=== PATIENT | male | born 1935 | race Caucasian/White ===

== ENCOUNTER → 2020-03-20 09:26 | Outpatient (BNVA) | payer MEDICARE, OTHER, SELFPAY | PROVIDERS: Family Provider Electrodiagnostic Medicine; PCP Electrodiagnostic Medicine; Visit Provider Specialist | DX: G71.11 Myotonic muscular dystrophy (principal); M96.1 Postlaminectomy syndrome, not elsewhere classified; M21.372 Foot drop, left foot; G62.9 Polyneuropathy, unspecified; M62.89 Other specified disorders of muscle | CPT/HCPCS: 82550; 82607; 82746; 83921; 84155; 84165; 85651; 99205 ==

== ENCOUNTER 2020-03-20 11:29 | Outpatient (CLI) | payer MEDICARE, OTHER, SELFPAY ==
[2020-03-20 12:50] LABS: Vitamin B12 380 pg/mL (232-1245)
[2020-03-20 13:43] LABS: Creatine Phosphokinase 426 U/L (39-308); Folate Level > 20.0 ng/mL (4.5-32.2)
[2020-03-20 13:45] LABS: Erythrocyte Sedimentation Rate 22 mm/hr (0-10)
[2020-03-21 08:12] LABS: PROTEIN, TOTAL 6.4 g/dL (6.1-8.1)
[2020-03-21 11:57] LABS: ALBUMIN 3.9 g/dL (3.8-4.8); ALPHA 1 GLOBULIN 0.3 g/dL (0.2-0.3); ALPHA 2 GLOBULIN 0.7 g/dL (0.5-0.9); BETA 1 GLOBULIN 0.4 g/dL (0.4-0.6); BETA 2 GLOBULIN 0.4 g/dL (0.2-0.5); GAMMA GLOBULIN 0.7 g/dL (0.8-1.7)
[2020-03-24 15:13] LABS: Methylmalonic Acid 212 nmol/L (87-318)
== END 2020-03-20 11:30 | disposition home or self-care (01) ==
LOC: LAB 11:34
PROVIDERS: PCP Electrodiagnostic Medicine; Visit Provider Specialist
DX: M62.89 Other specified disorders of muscle (principal)
CPT/HCPCS: 82550; 82607; 82746; 83921; 84155; 84165; 85651

== ENCOUNTER → 2020-03-30 12:47 | Outpatient (BNVA) | payer MEDICARE, OTHER, SELFPAY | PROVIDERS: PCP Electrodiagnostic Medicine; Referring Provider Specialist; Visit Provider Specialist | DX: G62.9 Polyneuropathy, unspecified (principal); M62.81 Muscle weakness (generalized); M25.572 Pain in left ankle and joints of left foot | CPT/HCPCS: 95909 ==

== ENCOUNTER 2020-04-11 06:00 | Outpatient (RCR) | payer MEDICARE, OTHER, SELFPAY | END 2020-04-26 23:59 | disposition home or self-care (01) | LOC: SPT 06:00 | PROVIDERS: PCP Electrodiagnostic Medicine; Referring Provider Specialist; Visit Provider Specialist | DX: M62.81 Muscle weakness (generalized) (principal); M62.89 Other specified disorders of muscle | CPT/HCPCS: 97110; 97112; 97162 ==

== ENCOUNTER → 2020-04-14 10:47 | Outpatient (BNVA) | payer MEDICARE, OTHER, SELFPAY | PROVIDERS: PCP Electrodiagnostic Medicine; Visit Provider Specialist | DX: G71.11 Myotonic muscular dystrophy (principal); M96.1 Postlaminectomy syndrome, not elsewhere classified; M21.372 Foot drop, left foot; G62.9 Polyneuropathy, unspecified | CPT/HCPCS: 99213 ==

== ENCOUNTER 2020-04-27 06:00 | Outpatient (RCR) | payer MEDICARE, OTHER, SELFPAY | END 2020-05-27 23:59 | disposition home or self-care (01) | LOC: SPT 06:00 | PROVIDERS: PCP Electrodiagnostic Medicine; Referring Provider Specialist; Visit Provider Specialist | DX: M62.81 Muscle weakness (generalized) (principal); M62.89 Other specified disorders of muscle | CPT/HCPCS: 97110; 97112 ==

== ENCOUNTER 2020-05-05 11:20 | Emergency (ER) | payer MEDICARE, OTHER, SELFPAY ==
[2020-05-05 11:25] VITALS: BP 151/78; PULSE 64; RESP 15; TEMP 36.8; O2SAT 95; BMI 29.9
--- NOTE | 2020-05-05 11:39 | ED_ITS ---
HPI - Extremity Problem General: Chief complaint: Extremity Injury, Upper Stated complaint: FALL/ ELBOW LAC Time Seen by Provider: 05/05/20 11:34 History of Present Illness: HPI Narrative: This patient is a 85-year-old male who presents today after stepping off a curb and falling. He said he hit his elbow and has an abrasion there from the blacktop. He denies any other pain or complaints. He said he did not hit his head. He has no neck or back pain. No hip shoulder or knee pain. He was able to get up and ambulate. He normally walks with a cane and said he was not able to get the cane down in time to keep his balance. He has no pain with range of motion of the elbow. MD Complaint: extremity pain (Abrasion over the right elbow) Onset (ago): minute(s) Pain Consistency: now resolved Location: right, upper extremity and elbow Radiation: none Exacerbating factors: nothing Associated symptoms: Deny chest pain or fever(s) Review of Systems Narrative: Patient denies any recent illness or complaints Const: Denies: fever(s) Card: Denies: chest pain Resp: Denies: dyspnea or non-productive cough Neuro: Reports: difficulty walking (Uses a cane and is doing physical therapy for balance) [facility] ED PFSH: Medical History Anxiety Hypertension Incomplete bladder emptying Myotonia Surgical History Previous back surgery Family History Other Dementia Diabetes Hypertension Denies family history of CAD (coronary artery disease) Clotting disorder Hyperlipidemia Psychiatric illness Chronic kidney disease (CKD) Suicide Anesthesia complication Bleeding disorder Family history of premature coronary artery disease Lung disease Cancer Stroke Social History Smoking and tobacco status: never smoked Alcohol intake: never Substance/Drug Use: never Household members: none Marital status: / Physical Exam Const: COMMON NORMALS: no acute distress, patient oriented x3, no limitations and alert GENERAL APPEARANCE: cooperative and comfortable HENMT: HEAD & SCALP: normal to inspection FACE & SINUS: normal facial exam Eye: GENERAL EYE: appearance normal, both eyes and all related structures Neck/C-Spine: COMMON NORMALS: supple, no meningeal signs and no JVD Chest: COMMONS NORMALS: normal inspection of the chest Resp: COMMON NORMALS: normal respiratory effort, No use of accessory muscles and clear to auscultation bilaterally AUSCULTATION: clear to auscultation bilaterally Cardio: COMMON NORMALS: no JVD, regular rate, regular rhythm and No murmurs present (Cardio) RATE: regular rate RHYTHM: regular rhythm GI: COMMON NORMALS: Normal to inspection, nondistended, normoactive bowel sounds present, Soft to palpation and non-tender INSPECTION: Yes normal to inspection AUSCULTATION: Yes normoactive bowel sounds PALPATION: Yes Soft to palpation Back/Pelvis: COMMON NORMALS: thoracic and lumbar spine normal to inspection Extremity: NARRATIVE EXTREMITY EXAM: No bony tenderness, no pain with range of motion of the elbow or shoulder. GENERAL: Yes normal exam except as noted (Abrasion and skin tear over the proximal forearm laterally) Neuro: COMMON NORMALS: patient oriented x3, moves all extremities, no focal motor deficits and no sensory deficits noted SENSORIUM/ORIENTATION: Yes alert MENINGEAL SIGNS: Yes no meningeal signs Psych: COMMON NORMALS: mental status grossly normal, cooperative and normal affect Skin: COMMON NORMALS: no rashes or lesions noted and turgor normal GENERAL SKIN EXAM: no rashes or lesions noted and turgor normal Course ED course: Local wound care, update tetanus. No sign of any other injuries. Vital Signs: Vital signs: Vital Signs Temperature 98.2 F 05/05/20 11:25 Pulse Rate 64 05/05/20 11:25 Respiratory Rate 15 05/05/20 11:25 Blood Pressure 151/78 05/05/20 11:25 Pulse Oximetry 95 05/05/20 11:25 Discharge Plan Discharge Prescriptions: No Action docusate sodium 100 mg capsule 100 mg PO DAILY RF: 0 tizanidine 4 mg capsule 4 mg PO Q8H PRNRF: 0 hydrocodone-acetaminophen [[place]] 10-325 mg tablet 1 tab PO Q8H PRNRF: 0 tamsulosin 0.4 mg capsule 0.4 mg PO DAILY RF: 0 acetaminophen [Tylenol Extra Strength] 500 mg tablet 500 mg PO Q6H PRNRF: 0 alprazolam 1 mg tablet 1 mg PO BID RF: 0 hydralazine 25 mg tablet 25 mg PO BID RF: 0 metoprolol tartrate 50 mg tablet 50 mg PO BID RF: 0 lisinopril 40 mg tablet 40 mg PO DAILY RF: 0 hydrochlorothiazide 12.5 mg tablet 12.5 mg PO DAILY RF: 0 omeprazole 20 mg capsule,delayed release(DR/EC) 20 mg PO DAILY RF: 0 methenamine hippurate 1 gram tablet 1 gm PO BID RF: 0 Durezol 0.05 % drops 1 drop ophthalmic (eye) TID RF: 0 nonyx nail gel topical RF: 0 (DME) Ottobmiroslava AFO See Rx Instructions .ROUTE .MEDSUPPLY Qty: 1 RF: 0 Coding Level of Care Code ED [employer]man for Praveen Fwd Exam Comprehensive
[2020-05-05] MEDS: tetanus-dipt-pertussis 0.5 mL SDV IM (11:55)
[2020-05-05 12:19] VITALS: RESP 15; TEMP 36.8; O2SAT 95
== END 2020-05-05 12:20 | disposition home or self-care (01) ==
PROVIDERS: Emergency Provider Emergency Medicine; PCP Electrodiagnostic Medicine
DX: S50.811A Abrasion of right forearm, initial encounter (principal); I10 Essential (primary) hypertension; W10.1XXA Fall (on)(from) sidewalk curb, initial encounter; Z23 Encounter for immunization
CPT/HCPCS: 12345; 90471; 90715; 99281; 99282

== ENCOUNTER 2020-05-28 06:00 | Outpatient (RCR) | payer MEDICARE, OTHER, SELFPAY | END 2020-06-26 23:59 | disposition home or self-care (01) | LOC: SPT 06:00 | PROVIDERS: PCP Electrodiagnostic Medicine; Referring Provider Specialist; Visit Provider Specialist | DX: M62.81 Muscle weakness (generalized) (principal); M62.89 Other specified disorders of muscle | CPT/HCPCS: 97110; 97112 ==

== ENCOUNTER → 2020-09-20 10:01 | Outpatient (BNVA) | payer MEDICARE, OTHER, SELFPAY | PROVIDERS: PCP Electrodiagnostic Medicine; Visit Provider Specialist | DX: G71.11 Myotonic muscular dystrophy (principal); M21.372 Foot drop, left foot; M96.1 Postlaminectomy syndrome, not elsewhere classified; G62.9 Polyneuropathy, unspecified; R06.02 Shortness of breath | CPT/HCPCS: 99214 ==

== ENCOUNTER 2020-10-05 08:26 | Outpatient (CLI) | payer MEDICARE, OTHER, SELFPAY ==
--- NOTE | 2020-10-05 08:45 | USCV_ITS ---
Geoffrey Song Age: 85 Gender: M : 1935 Exam Date: 10/05/2020 08:47 Ordering Phys: Claudine Norwood MD Technologist: Lucas Resendiz Exam Location: [facility] [place] Indication: CP BP: 130 / 82 HR: 54 Rhythm: Sinus Technical Quality: Good MEASUREMENTS (Male / Female) Normal Values 2D ECHO LV Diastolic Diameter PLAX 3.2 cm 4.2 - 5.9 / 3.9 - 5.3 cm LV Systolic Diameter PLAX 2.3 cm IVS Diastolic Thickness 1.6 cm 0.6 - 1.0 / 0.6 - 0.9 cm IVS Systolic Thickness 1.8 cm LVPW Diastolic Thickness 1.2 cm 0.6 - 1.0 / 0.6 - 0.9 cm LVPW Systolic Thickness 1.2 cm LVOT Diameter 2.1 cm LV Ejection Fraction 2D Teich 55.9 % LV Ejection Fraction MOD 2C 59.1 % LV Ejection Fraction 2C AL 60.7 % LA Diameter 3.5 cm LA Width 4.1 cm LA Height 5.6 cm RA Width 2.8 cm RA Height 4.8 cm Aorta at Sinotubular Diameter 2.8 cm M-MODE LV Diastolic Diameter MM 4.6 cm 4.2 - 5.9 / 3.9 - 5.3 cm LV Systolic Diameter MM 2.7 cm LV Ejection Fraction MM Teich 72.3 % IVS Diastolic Thickness MM 1.0 cm 0.6 - 1.0 / 0.6 - 0.9 cm IVS Systolic Thickness MM 1.8 cm LVPW Diastolic Thickness MM 1.0 cm 0.6 - 1.0 / 0.6 - 0.9 cm LVPW Systolic Thickness MM 1.4 cm RV Diastolic Diameter MM 1.4 cm Aortic Annulus Diameter 4.0 cm LA Ao Ratio MM 0.9 MV E Point Septal Separation 1.1 cm DOPPLER AV Peak Velocity 119.0 cm/s LVOT Peak Velocity 82.0 cm/s AV Area Cont Eq vti 2.5 cm squared AV Area Cont Eq pk 2.3 cm squared MV Area PHT 5.0 cm squared Mitral E to A Ratio 1.0 MV E' Velocity 43.0 cm/s Mitral E to MV E' Ratio 11.8 Mitral E to LV E' Lateral Ratio 11.8 Mitral E to LV E' Septal Ratio 11.8 TR Peak Velocity 289.0 cm/s TR Peak Gradient 33.4 mmHg TV Peak E Velocity 79.0 cm/s Right Atrial Pressure 3.0 mmHg Pulmonary Artery Systolic Pressu 36.4 mmHg PV Peak Velocity 68.0 cm/s FINDINGS Left Ventricle Normal left ventricular cavity size. Normal left ventricular systolic function. No regional wall motion abnormalities. Left ventricular ejection fraction is estimated at 60 %. Grade I/IV diastolic dysfunction (abnormal relaxation filling pattern), normal to mildly elevated filling pressures. Right Ventricle The right ventricle is normal in size and function. Right Atrium The right atrium is normal in size. Left Atrium The left atrium is normal in size. Mitral Valve Structurally normal mitral valve without significant stenosis or prolapse. There is no mitral regurgitation. Aortic Valve Structurally normal aortic valve without significant sclerosis or stenosis. There is no aortic regurgitation. Tricuspid Valve Structurally normal tricuspid valve without significant stenosis or regurgitation. Pulmonary artery systolic pressure is normal. Pulmonic Valve Structurally normal pulmonic valve without significant stenosis. There is no pulmonic regurgitation. Pericardium Normal pericardium without effusion. Aorta Normal ascending aorta dimension. CONCLUSIONS 1-Normal left ventricular cavity size. Normal left ventricular systolic function. No regional wall motion abnormalities. Left ventricular ejection fraction is estimated at 60 %. Grade I/IV diastolic dysfunction (abnormal relaxation filling pattern), normal to mildly elevated filling pressures. 2-No significant valve abnormalities. 3-There is no pericardial effusion. 4-Pulmonary artery systolic pressure is within normal limits. 5-Right atrial pressure is around 5 mm of mercury. 6-There are no prior echocardiogram studies to compare. Tammi Martinez MD (Electronically Signed) Final Date: 05 October 2020 19:14 S
== END 2020-10-05 08:27 | disposition home or self-care (01) ==
LOC: US 08:26
PROVIDERS: PCP Electrodiagnostic Medicine; Visit Provider Specialist
DX: R06.02 Shortness of breath (principal); R07.9 Chest pain, unspecified
CPT/HCPCS: 93306

== ENCOUNTER → 2020-10-09 14:15 | Outpatient (BNVA) | payer MEDICARE, OTHER, SELFPAY | PROVIDERS: PCP Electrodiagnostic Medicine; Visit Provider Internal Medicine | DX: G71.11 Myotonic muscular dystrophy (principal); Z01.812 Encounter for preprocedural laboratory examination; N31.9 Neuromuscular dysfunction of bladder, unspecified | CPT/HCPCS: 87635 ==

== ENCOUNTER → 2020-10-11 08:20 | Outpatient (BNVA) | payer MEDICARE, OTHER, SELFPAY | PROVIDERS: PCP Electrodiagnostic Medicine; Visit Provider Specialist | DX: G71.11 Myotonic muscular dystrophy (principal) | CPT/HCPCS: 99213 ==

== ENCOUNTER 2020-10-13 08:14 | Day surgery (SDC) | payer MEDICARE, OTHER, SELFPAY ==
[2020-10-12 13:13] VITALS: BMI 29.9
--- NOTE | 2020-10-13 08:36 | ANES.PREANE2 ---
Pre-Anesthetic Assessment Pre-Anesthetic Assessment: Height/Weight: Height 1.65 m Weight 81.647 kg Proposed Procedure: Operation Date: 10/13/20 09:45 Proposed Procedures p Colonoscopy 18342 G71.11(Not Applicable) - Abhay Cherry MD Was Beta Shamar taken within 24 hours: Yes Was Clonidine taken within 24 hours: N/A Social: Social History: No alcohol and No tobacco Exam: Pre-Anes Outpt Exam: alert, oriented x 3, clear to auscultation bilaterally and regular rate & rhythm Airway: Submandibular: WNL Cervical ROM: WNL MP: 2 Dentition: False and Partials CV/HEM: CV/HEM: HTN GI: GI: GERD Musc/skel: Musc/skel: Lower Back Pain and Weakness Neuropsych: Neuropsych: Neuropathy Anesthetic Plan: ASA status: 3 Anesthesia: MAC Risk of > 500 ml blood loss (7ml/kg in children): No PFSH Anesthesia PFSH: Medical History Anxiety Hypertension Incomplete bladder emptying Myotonia Recurrent UTI Urinary retention Surgical History Previous back surgery Family History Other Dementia Diabetes Hypertension Denies family history of CAD (coronary artery disease) Clotting disorder Hyperlipidemia Psychiatric illness Chronic kidney disease (CKD) Suicide Anesthesia complication Bleeding disorder Family history of premature coronary artery disease Lung disease Cancer Stroke Social History Smoking and tobacco status: never smoked Alcohol intake: never Household members: none Marital status: / Data Anesthesia Cardiac Studies: No Data to Display
[2020-10-13 09:09] VITALS: BP 159/92; PULSE 84; RESP 18; TEMP 36.8; O2SAT 96
--- NOTE | 2020-10-13 09:12 | W.PM.OPSUD ---
Surgery/Procedure H&P Update DATE OF PROCEDURE: October 13, 2020 DATE H&P PERFORMED: 10/09/20 PREOP DIAGNOSIS: c PLANNED PROCEDURE: Operation Date: 10/13/20 09:45 Proposed Procedures p Colonoscopy 61128 G71.11(Not Applicable) - Abhay Cherry MD
[2020-10-13] MEDS: sodium chloride 0.9% 1,000 ML 30 ML IV (09:18)
--- NOTE | 2020-10-13 10:18 | ANE.PACU2 ---
Inpatient post-anesthesia follow up: Airway intact: Yes Vital signs: Temperature 98.2 F Pulse Rate 84 Respiratory Rate 18 Blood Pressure 159/92 Pulse Oximetry 96 Oxygen Delivery Me thod Room Air Oxygen Flow Rate Fraction of Inspir ed Oxygen Hydration adequate: Yes Nausea and vomiting: No Pain level: 1 Mental status: Baseline
[2020-10-13 10:32] VITALS: BP 98/69; PULSE 84; RESP 16; TEMP 36.1; O2SAT 95
[2020-10-13 10:44] VITALS: BP 117/81; PULSE 74; RESP 18; O2SAT 95
--- NOTE | 2020-10-13 11:25 | PC.NURSE ---
DISCHARGE INSTRUCTIONS WERE MAILED TO PATIENT.
== END 2020-10-13 11:17 | disposition home or self-care (01) ==
PROVIDERS: PCP Electrodiagnostic Medicine; Visit Provider Internal Medicine
PROC: 0DJD8ZZ Inspection of Lower Intestinal Tract, Via Natural or Artificial Opening Endoscopic (ICD-10-PCS; CPT 45378; principal; 2020-10-13 09:45)
DX: G71.11 Myotonic muscular dystrophy (principal); F41.9 Anxiety disorder, unspecified; I10 Essential (primary) hypertension; K21.9 Gastro-esophageal reflux disease without esophagitis
CPT/HCPCS: 45378; 96360; J2704; J7030

== ENCOUNTER → 2021-10-16 08:46 | Outpatient (BNVA) | payer MEDICARE, OTHER, SELFPAY | PROVIDERS: PCP Electrodiagnostic Medicine; Visit Provider Specialist | DX: G71.11 Myotonic muscular dystrophy (principal); G62.9 Polyneuropathy, unspecified; M21.372 Foot drop, left foot; M96.1 Postlaminectomy syndrome, not elsewhere classified | CPT/HCPCS: 99213; 99214 ==

== ENCOUNTER 2021-11-06 06:00 | Outpatient (RCR) | payer MEDICARE, OTHER, SELFPAY | END 2021-11-24 23:59 | disposition home or self-care (01) | LOC: SPT 06:00 | PROVIDERS: PCP Electrodiagnostic Medicine; Referring Provider Specialist; Visit Provider Specialist | DX: G71.11 Myotonic muscular dystrophy (principal) | CPT/HCPCS: 97110; 97162 ==

== ENCOUNTER 2021-11-25 | Outpatient (RCR) | payer MEDICARE, OTHER, SELFPAY | END 2021-12-25 23:59 | disposition home or self-care (01) | LOC: SPT | PROVIDERS: PCP Electrodiagnostic Medicine; Referring Provider Specialist; Visit Provider Specialist | DX: G71.11 Myotonic muscular dystrophy (principal) | CPT/HCPCS: 97110 ==

== ENCOUNTER → 2022-05-30 09:45 | Outpatient (BNVA) | payer MEDICARE, OTHER, SELFPAY | PROVIDERS: PCP Electrodiagnostic Medicine; Visit Provider Podiatrist Foot & Ankle Surgery | DX: E11.8 Type 2 diabetes mellitus with unspecified complications (principal); M21.372 Foot drop, left foot; I73.9 Peripheral vascular disease, unspecified; L60.3 Nail dystrophy; Z91.81 History of falling | CPT/HCPCS: 11721 ==

== ENCOUNTER → 2022-08-01 09:15 | Outpatient (BNVA) | payer MEDICARE, OTHER, SELFPAY | PROVIDERS: PCP Electrodiagnostic Medicine; Visit Provider Podiatrist Foot & Ankle Surgery | DX: E11.8 Type 2 diabetes mellitus with unspecified complications (principal); I73.9 Peripheral vascular disease, unspecified; M21.372 Foot drop, left foot; L60.3 Nail dystrophy; Z91.81 History of falling | CPT/HCPCS: 11721 ==

== ENCOUNTER → 2022-10-10 09:10 | Outpatient (BNVA) | payer MEDICARE, OTHER, SELFPAY | PROVIDERS: PCP Electrodiagnostic Medicine; Visit Provider Podiatrist Foot & Ankle Surgery | DX: I73.9 Peripheral vascular disease, unspecified (principal); M21.372 Foot drop, left foot; L60.3 Nail dystrophy; Z91.81 History of falling | CPT/HCPCS: 11721 ==

== ENCOUNTER → 2022-10-22 08:58 | Outpatient (BNVA) | payer MEDICARE, OTHER, SELFPAY | PROVIDERS: PCP Electrodiagnostic Medicine; Visit Provider Specialist | DX: G71.11 Myotonic muscular dystrophy (principal); M96.1 Postlaminectomy syndrome, not elsewhere classified; G62.9 Polyneuropathy, unspecified; M21.372 Foot drop, left foot | CPT/HCPCS: 99213 ==

== ENCOUNTER → 2023-01-14 11:14 | Outpatient (BNVA) | payer MEDICARE, OTHER, SELFPAY | PROVIDERS: PCP Electrodiagnostic Medicine; Visit Provider Podiatrist Foot & Ankle Surgery | DX: I73.9 Peripheral vascular disease, unspecified (principal); L60.3 Nail dystrophy; M21.372 Foot drop, left foot; Z91.81 History of falling | CPT/HCPCS: 11721 ==

== ENCOUNTER → 2023-01-16 10:17 | Outpatient (BNVA) | payer MEDICARE, OTHER, SELFPAY | PROVIDERS: PCP Electrodiagnostic Medicine; Visit Provider Urology | DX: R33.9 Retention of urine, unspecified (principal) | CPT/HCPCS: 81003; 99213 ==

== ENCOUNTER → 2023-03-18 08:39 | Outpatient (BNVA) | payer MEDICARE, OTHER, SELFPAY | PROVIDERS: PCP Electrodiagnostic Medicine; Visit Provider Podiatrist Foot & Ankle Surgery | DX: M21.372 Foot drop, left foot (principal); I73.9 Peripheral vascular disease, unspecified; L60.3 Nail dystrophy; Z91.81 History of falling | CPT/HCPCS: 11721 ==

== ENCOUNTER → 2023-05-27 08:48 | Outpatient (BNVA) | payer MEDICARE, OTHER, SELFPAY | PROVIDERS: PCP Electrodiagnostic Medicine; Visit Provider Podiatrist Foot & Ankle Surgery | DX: I73.9 Peripheral vascular disease, unspecified (principal); L60.3 Nail dystrophy | CPT/HCPCS: 11721 ==

== ENCOUNTER → 2023-08-26 10:39 | Outpatient (BNVA) | payer MEDICARE, OTHER, SELFPAY | PROVIDERS: PCP Electrodiagnostic Medicine; Visit Provider Podiatrist Foot & Ankle Surgery | DX: I73.9 Peripheral vascular disease, unspecified (principal); L60.3 Nail dystrophy | CPT/HCPCS: 11721 ==

== ENCOUNTER → 2023-11-11 09:10 | Outpatient (BNVA) | payer MEDICARE, OTHER, SELFPAY | PROVIDERS: PCP Electrodiagnostic Medicine; Visit Provider Podiatrist Foot & Ankle Surgery | DX: L60.8 Other nail disorders (principal); I73.9 Peripheral vascular disease, unspecified; L60.3 Nail dystrophy | CPT/HCPCS: 11721 ==

== ENCOUNTER → 2024-02-10 08:30 | Outpatient (BNVA) | payer MEDICARE, OTHER, SELFPAY | PROVIDERS: PCP Electrodiagnostic Medicine; Visit Provider Podiatrist Foot & Ankle Surgery | DX: I73.9 Peripheral vascular disease, unspecified (principal); L60.3 Nail dystrophy | CPT/HCPCS: 11721 ==

== ENCOUNTER → 2024-05-11 08:35 | Outpatient (BNVA) | payer MEDICARE, OTHER, SELFPAY | PROVIDERS: PCP Electrodiagnostic Medicine; Visit Provider Podiatrist Foot & Ankle Surgery | DX: I73.9 Peripheral vascular disease, unspecified (principal); L60.3 Nail dystrophy | CPT/HCPCS: 11721 ==

== ENCOUNTER → 2024-08-17 08:58 | Outpatient (BNVA) | payer MEDICARE, OTHER, SELFPAY | PROVIDERS: PCP Electrodiagnostic Medicine; Visit Provider Podiatrist Foot & Ankle Surgery | DX: L60.8 Other nail disorders (principal); I73.9 Peripheral vascular disease, unspecified; L60.3 Nail dystrophy | CPT/HCPCS: 11721 ==

== ENCOUNTER → 2024-11-16 08:08 | Outpatient (BNVA) | payer MEDICARE, OTHER, SELFPAY | PROVIDERS: PCP Electrodiagnostic Medicine; Visit Provider Podiatrist Foot & Ankle Surgery | DX: I73.9 Peripheral vascular disease, unspecified (principal); L60.3 Nail dystrophy | CPT/HCPCS: 11721 ==

== ENCOUNTER → 2025-02-15 08:41 | Outpatient (BNVA) | payer MEDICARE, OTHER, SELFPAY | PROVIDERS: PCP Electrodiagnostic Medicine; Visit Provider Podiatrist Foot & Ankle Surgery | DX: I73.9 Peripheral vascular disease, unspecified (principal); L60.3 Nail dystrophy | CPT/HCPCS: 11721 ==

== ENCOUNTER → 2025-05-17 08:44 | Outpatient (BNVA) | payer MEDICARE, OTHER, SELFPAY | PROVIDERS: PCP Electrodiagnostic Medicine; Visit Provider Podiatrist Foot & Ankle Surgery | DX: I73.9 Peripheral vascular disease, unspecified (principal); L60.3 Nail dystrophy; L60.8 Other nail disorders | CPT/HCPCS: 11721 ==